=== PATIENT | female | born 1950 | race Caucasian/White ===

== ENCOUNTER → 2019-06-19 11:01 | Outpatient (CLI) | payer MEDICARE, OTHER, SELFPAY ==
[2019-06-19 11:33] LABS: Blood Urea Nitrogen 24 mg/dL (7-17); Estimated Glomerular Filt Rate 54.8 mL/min (>60)
--- NOTE | 2019-06-19 12:45 | DI.CT.S_ITS ---
PROCEDURE: CT ABDOMEN W CON INDICATIONS: Cyst of pancreas. TECHNIQUE: After the administration of oral and intravenous contrast, 5 mm thick sections acquired from the diaphragms to the iliac crests. 5 mm thick coronal and sagittal reformats were acquired. For radiation dose reduction, the following was used: automated exposure control, adjustment of mA and/or kV according to patient size. COMPARISON: Outside Facility, RG, MRI ABDOMEN W/W/O CONTRAST, 02/15/2019, 10:26. [facility], , CT ABD / PANCREAS W/WO CON, 01/24/2019, 10:16. FINDINGS: Image quality: Excellent. Lung bases: Lung bases are clear. Heart size is normal. Solid organs: Liver is normal in size and enhancement. Gallbladder appears normal. Biliary system is non dilated. 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 Spleen is normal in size and enhancement. No adrenal nodules. Kidneys are normal in size, without hydronephrosis. Peritoneum and bowel: Contrast enhanced bowel loops appear normal in caliber. No free fluid or air. Nodes and vessels: No retroperitoneal or mesenteric adenopathy by size criteria. Aorta and inferior vena cava are normal in size. Bones: No suspicious bony lesions. No vertebral body compression fractures. Miscellaneous: No ventral hernias. IMPRESSION: No change in the small nodular enhancing structure at the far proximal pancreatic tail considered by the formerly [facility] report to represent a intrapancreatic splenule. This nodule has not enlarged from the earliest available CT or MR scanning that includes this area dated 01/24/19. Followup contrast enhanced CT or MR scanning is recommended in 6 and 12 additional months from now and assuming stability of appearance over time no additional followup would appear warranted. Dictated by: Rodolfo Reeves M.D. on 06/19/2019 at 15:39 Approved by: Rodolfo Reeves M.D. on 06/19/2019 at 15:49
== END ==
LOC: CT 11:03 → LAB 11:07
PROVIDERS: PCP Family Medicine; Visit Provider Family Medicine
DX: K86.2 Cyst of pancreas (principal); E11.9 Type 2 diabetes mellitus without complications
CPT/HCPCS: 36415; 74160; 82565; 84520; Q9967

== ENCOUNTER → 2019-08-31 13:07 | Outpatient (CLI) | payer MEDICARE, OTHER, SELFPAY ==
--- NOTE | 2019-08-31 13:10 | DI.US.S_ITS ---
PROCEDURE: US PELVIC COMPLETE INDICATIONS: PELVIC CRAMPING AND BLOATING TECHNIQUE: Real-time scanning was performed of the pelvic organs, with image documentation. Additional endovaginal scanning was necessary due to incomplete visualization of the adnexal and endometrial structures by transabdominal scanning. COMPARISON: [facility], RG, CT ABD / PANCREAS W/WO CON, 01/24/2019, 10:16. FINDINGS: Transabdominal scanning: Limited scanning through the kidneys shows no hydronephrosis. No pathologic free abdominal or pelvic fluid. Endovaginal scanning: Uterus: Prior hysterectomy. Ovaries: Ovaries are normal measuring 1.4 x 1.3 x 1.1 cm on the right and 2.3 x 1.5 x 1.5 cm on the left. IMPRESSION: No source for pelvic cramping and bloating identified. Dictated by: Shmuel GIFFORD Interpreted: Juan Hooker MD on 08/31/2019 at 14:08 Approved by: Juan Hooker M.D. on 08/31/2019 at 18:46
== END ==
PROVIDERS: PCP Family Medicine; Visit Provider Specialist
DX: R10.2 Pelvic and perineal pain (principal); R14.0 Abdominal distension (gaseous); Z85.3 Personal history of malignant neoplasm of breast; Z90.710 Acquired absence of both cervix and uterus
CPT/HCPCS: 76830; 76856

== ENCOUNTER → 2020-01-05 10:59 | Outpatient (CLI) | payer MEDICARE, OTHER, SELFPAY ==
--- NOTE | 2020-01-05 | DI.CT.S_ITS ---
PROCEDURE: CT ABDOMEN W CON INDICATIONS: Cyst of pancreas TECHNIQUE: After the administration of intravenous contrast, 5 mm thick sections acquired from the diaphragm to the iliac crests. 5 mm coronal and sagittal reformats were performed. For radiation dose reduction, the following was used: automated exposure control, adjustment of mA and/or kV according to patient size. COMPARISON: [facility], CT, CT ABDOMEN W CON, 06/19/2019, 12:23. FINDINGS: Image quality: Excellent. Lung bases: Lung bases are clear. Heart size is normal. Solid organs: Liver is normal in size and enhancement. Gallbladder is unremarkable. Biliary system is non dilated. No significant change in the appearance of the pancreas. The majority of the pancreas is predominantly fatty replaced. In the tail, there is mildly prominent enhancing nodule tissue which is stable in appearance compared to the prior study. It has been 5 to possibly represent an intra-pancreatic splenule. It measures approximately 1.4 x 1.0 cm, best seen on the coronal reformats. Spleen is normal in size and enhancement. No adrenal nodules. Kidneys demonstrate normal size and enhancement, without hydronephrosis. Peritoneum and bowel: Bowel loops demonstrate normal wall thickness and caliber. No free fluid or air. Nodes and vessels: No retroperitoneal or mesenteric adenopathy by size criteria. Aorta and inferior vena cava are normal in size. Miscellaneous: No ventral hernias. IMPRESSION: Stable enhancing nodular tissue in the pancreatic tail measuring approximately 4.0 cm. 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 As per prior report, recommend [address] Dictated by: Konrad Cherry M.D. on 01/05/2020 at 11:59 Approved by: Konrad Cherry M.D. on 01/05/2020 at 12:04
== END ==
PROVIDERS: PCP Family Medicine; Referring Provider Family Medicine; Visit Provider Family Medicine
DX: K86.2 Cyst of pancreas (principal)
CPT/HCPCS: 74160; Q9967

== ENCOUNTER → 2020-02-09 13:43 | Outpatient (CLI) | payer MEDICARE, OTHER, SELFPAY ==
--- NOTE | 2020-02-09 | DI.ECHO.S_ITS ---
[place] +---------+ Hospital +---------+ : : [address] : : : : [id number] : : : : Phone: [phone]+ Echocardiogram Report + + :Name: CORRIE AMANDA Study Date: 02/09/2020 Height: 62 in : :[facility] Weight: 194 lb : : Gender: Female BSA: 1.9 m2 : :: 1950 Age: 70 yrs BP: 144/76 mmHg: :Reason For Study: Murmur : :Ordering Physician: : :Whit Nowak Performed By: Geneva Bertrand : + + Interpretation Summary Normal sinus rhythm. Normal LV size, wall thickness, wall motion and LV systolic function. EF is 60-65%. Mild LA enlargement; otherwise normal chamber sizes. Aortic sclerosis without stenosis. There is a pacing lead traversing the tricuspid valve with trace associated TR. Otherwise no significant valvular abnormalities. Compared to prior study 05/04/2016 pacing lead is new Procedure: A two-dimensional transthoracic echocardiogram with color flow and Doppler was performed. The study quality was technically difficult. Comparison is made with the echocardiogram of 05/04/2016. The patient was in normal sinus rhythm during the exam. Left Ventricle: The left ventricle is normal in size. There is normal left ventricular wall thickness. There is no ventricular septal defect visualized. The ejection fraction is estimated to be 60-65%. There are no obvious focal wall motion abnormalities noted but poor endocardial definition reduces the sensitivity for the detection of such. Diastolic parameters suggest a relaxation abnormality of the left ventricle, consistent with probable normal filling pressures. Right Ventricle: There is a pacemaker lead in the right ventricle. The right ventricular systolic function is normal. Atria: The left atrium is mildly dilated. Right atrium not well visualized. There is no Doppler evidence for an interatrial shunt. Mitral Valve: The mitral valve leaflets appear mildly thickened, but open well. There is trace mitral regurgitation. Aortic Valve: The aortic valve is trileaflet. The aortic valve opens well. No aortic regurgitation is present. Tricuspid Valve: The tricuspid valve is not well visualized, but is grossly normal. There is trace tricuspid regurgitation. Pulmonic Valve: The pulmonic valve is not well visualized. There is a trace or physiologic amount of pulmonic regurgitation. Great Vessels: The aortic root is normal size. The ascending aorta is normal in size. The aortic arch is normal in size. The IVC is of normal diameter and collapses greater than 50% with a sniff. This suggests a low right atrial pressure of 3 mm Hg. Pericardium/ Pleura There is no pericardial effusion. MMode/2D Measurements & Calculations LVIDd: 4.7 cm LVOT diam: 1.9 cm LVIDs: 3.2 cm Ao root diam: 3.1 cm FS: 32.2 % Aortic Jxn: 2.8 cm EPSS: 0.23 cm asc Aorta Diam: 3.3 cm IVSd: 0.84 cm Ao Arch Diam (Prox Trans): 3.0 cm LVPWd: 0.71 cm LV richard. diameter/BSA (cm/m^2): 2.5 LV sys. diameter/BSA (cm/m^2): 1.7 LA A2 area: 20.9 cm2 IVC diam: 1.4 cm LA A4 area: 21.0 cm2 LA length (vol): 5.5 cm LA vol: 67.4 ml LA vol index: 35.7 ml/m2 TAPSE: 2.5 cm Doppler Measurements & Calculations Ao V2 max: 165.0 cm/sec LVOT Max Cornelio: 93.6 cm/sec Ao V2 mean: 113.5 cm/sec LV V1 max P.5 mmHg Ao max P.9 mmHg LV V1 VTI: 20.7 cm Ao mean P.7 mmHg RAND(I,D): 1.8 cm2 Ao V2 VTI: 33.6 cm RAND(V,D): 1.7 cm2 sev ratio: 0.62 RAND indexed to BSA (cm^2/m^2): 0.97 MV E max cornelio: 80.7 cm/sec TR max cornelio: 247.3 cm/sec MV A max cornelio: 105.3 cm/sec TR max P.5 mmHg MV E/A: 0.77 PA V2 max: 89.3 cm/sec Med Peak E' Cornelio: 6.0 cm/sec PA V2 mean: 58.2 cm/sec E/E' med: 13.4 PA mean P.5 mmHg Lat Peak E' Cornelio: 8.7 cm/sec PA Accel Time: 0.04 sec E/E' lat: 9.2 E/e' average: 11.3 MV dec time: 0.19 sec MV P1/2t: 55.2 msec MV P1/2t max cornelio: 80.0 cm/sec SV(LVOT): 61.7 ml JULIEN(P1/2t): 4.0 cm2 Electronically signed by: Evelina Vincent M.D. on Reading Physician:02/10/2020 09:24 AM
== END ==
PROVIDERS: PCP Family Medicine; Referring Provider Family Medicine; Visit Provider Family Medicine
DX: R01.1 Cardiac murmur, unspecified (principal); Z95.0 Presence of cardiac pacemaker
CPT/HCPCS: 93306

== ENCOUNTER → 2020-04-16 11:41 | Outpatient (ROUT) | payer MEDICARE, OTHER, SELFPAY ==
[2020-04-16 11:54] LABS: INR 0.9 (0.9-1.3); Prothrombin Time 10.8 SECONDS (10.1-12.7)
== END ==
PROVIDERS: PCP Family Medicine; Visit Provider Family Medicine
DX: M54.16 Radiculopathy, lumbar region (principal); Z01.89 Encounter for other specified special examinations
CPT/HCPCS: 85610

== ENCOUNTER → 2020-04-22 08:26 | Outpatient (CLI) | payer MEDICARE, OTHER, SELFPAY ==
[2020-04-22] VITALS (11 sets, daily range): BP systolic 108–170; BP diastolic 64–91; PULSE 60–82; RESP 12–18; TEMP 36.4–37.1; O2SAT 94–100; BMI 32.5
--- NOTE | 2020-04-22 | DI.RAD.S_ITS ---
PROCEDURE: FL MYELOGRAM SPINE LUMBOSACRAL INDICATIONS: Radiculopathy, lumbar region TECHNIQUE: The indications, alternatives, benefits, risks and complications of the procedure were explained to the patient. Written informed consent was obtained and placed in the chart. The patient was placed in a prone position on the fluoroscopy table, and a level was chosen for percutaneous access under fluoroscopic guidance. The skin was prepped and draped in a sterile fashion. After local anaesthetic, a spinal needle was then used to enter the intrathecal space, with return of clear cerebrospinal fluid. 9 mL of Isovue-M 300 were administered intrathecally under fluoroscopic visualization. The needle was then withdrawn, and a bandage applied to the puncture site. Fluoroscopic spot films were then acquired in various positions. FINDINGS: Standing frontal, lateral, and oblique views demonstrate no significant central canal stenoses. Access level: L4-L5 Medications: 1% lidocaine for local anaesthesia. Complications: None. Patient was transferred to CT for subsequent CT myelogram. IMPRESSION: Successful fluoroscopically guided administration of iodinated contrast into the lumbar spine central canal for CT myelogram. Dictated by: Carlos Poon M.D. on 04/22/2020 at 12:49 Approved by: Carlos Poon M.D. on 04/22/2020 at 12:50
--- NOTE | 2020-04-22 | DI.CT.S_ITS ---
PROCEDURE: CT LUMBAR SPINE W CON INDICATIONS: Radiculopathy, lumbar region TECHNIQUE: After the intrathecal administration of 15 mL intrathecal contrast, 3 mm thick sections acquired from T12 to the sacrum. Sagittal and coronal reformats were then constructed. For radiation dose reduction, the following was used: automated exposure control. COMPARISON: None. FINDINGS: Image quality: Excellent. Bones: Chronic bilateral L5 pars defects. Trace anterolisthesis of L5 on S1. Partially visualized lateral curvature of the spine. No fracture or focal osseous destruction. Multilevel degenerative endplate sclerosis and spurring. Diffuse facet arthropathy. Incidental T12 superior endplate Schmorl's node. Soft tissues: No retroperitoneal masses. Visualized aorta demonstrates normal caliber. T12-L1: No canal stenosis. No definite foraminal narrowing. L1-L2: No canal stenosis. No foraminal stenosis. L2-L3: No canal stenosis. No foraminal stenosis. L3-L4: No canal stenosis. Partial effacement of both lateral recesses with bilaterally symmetric appearance. Mild left foraminal narrowing, with borderline nerve root compression. No right foraminal stenosis. L4-L5: Mild canal narrowing. Partial effacement of both lateral recesses with bilaterally symmetric appearance. No foraminal stenosis on the left. Mild right foraminal narrowing with borderline nerve root compression L5-S1: Mild canal narrowing. Mild left foraminal narrowing with slight nerve root compression. Moderate right foraminal stenosis with nerve root compression. Miscellaneous: Nerve roots appear unremarkable throughout. No nerve root clumping to suggest arachnoiditis. IMPRESSION: No high-grade canal stenosis. Mild left L3-L4 foraminal narrowing. Mild right L4-L5 foraminal narrowing Mild to moderate bilateral L5-S1 foraminal narrowing, right greater than left. Chronic L5 pars defects. Trace anterolisthesis of L5 on S1 Dictated by: Carlos Poon M.D. on 04/22/2020 at 12:50 Approved by: Carlos Poon M.D. on 04/22/2020 at 13:08
[2020-04-22 08:53] LABS: Hematocrit 40.3 % (36-46); Platelet Count 205 X10^3/uL (150-400)
[2020-04-22 09:00] LABS: INR 0.9 (0.9-1.3); Prothrombin Time 10.1 SECONDS (10.1-12.7)
[2020-04-22] MEDS: fentaNYL 100 MCG/2 ML INJ 50 MCG IV (10:53)
[2020-04-22] MEDS: MIDAZOLAM 5 MG/ML VIAL 1 MG IV (10:54)
[2020-04-22] MEDS: ACETAMINOPHEN 325 MG TABLET 650 MG PO (11:14)
== END ==
PROVIDERS: PCP Family Medicine; Referring Provider Family Medicine; Visit Provider Family Medicine
DX: M54.16 Radiculopathy, lumbar region (principal); Z01.89 Encounter for other specified special examinations
CPT/HCPCS: 36415; 72131; 72265; 85014; 85049; 85610; J2250; J3010

== ENCOUNTER → 2020-09-20 13:34 | Outpatient (CLI) | payer MEDICARE, OTHER, SELFPAY ==
--- NOTE | 2020-09-20 | DI.RAD.S_ITS ---
PROCEDURE: XR LUMBAR SPINE 2-3V INDICATIONS: LUMBAR RADICULOPATHY TECHNIQUE: 3 views of the lumbar spine were acquired. COMPARISON: None. FINDINGS: Bones: No fracture. Dextroscoliosis. Multilevel degenerative endplate sclerosis and spurring. Diffuse facet arthropathy. Diffuse mild to moderate narrowing of the lumbar disc spaces. Grade 1 anterolisthesis of L5 on S1. Soft tissues: Scattered vascular calcifications seen in the aorta. IMPRESSION: Dextroscoliosis Diffuse lumbar spondylosis and facet arthropathy Dictated by: Carlos Poon M.D. on 09/20/2020 at 14:21 Approved by: Carlos Poon M.D. on 09/20/2020 at 14:23
== END ==
PROVIDERS: PCP Family Medicine; Referring Provider Family Medicine; Visit Provider Family Medicine
DX: M41.86 Other forms of scoliosis, lumbar region (principal); M47.26 Other spondylosis with radiculopathy, lumbar region
CPT/HCPCS: 72100

== ENCOUNTER → 2021-01-06 11:16 | Outpatient (CLI) | payer MEDICARE, OTHER, SELFPAY ==
--- NOTE | 2021-01-06 12:59 | DI.CT.S_ITS ---
PROCEDURE: CT ABDOMEN W CON INDICATIONS: Cyst of pancreas TECHNIQUE: After the administration of oral and intravenous contrast, 5 mm thick sections acquired from the diaphragms to the iliac crests. 5 mm thick coronal and sagittal reformats were acquired. For radiation dose reduction, the following was used: automated exposure control, adjustment of mA and/or kV according to patient size. COMPARISON: [facility], CT, CT ABDOMEN W CON, 06/19/2019, 12:23. [facility], CT, CT ABDOMEN W CON, 01/05/2020, 11:36. FINDINGS: Image quality: Excellent. Lung bases: Lung bases are clear. Heart size is mildly enlarged and there is a pacemaker lead present.. Solid organs: Liver is normal in size and enhancement. Gallbladder is normal . Biliary system is non dilated. The majority of the pancreas demonstrates fatty replacement with sparing in the pancreatic tail. No change in morphology to this area which respects the pancreatic glandular margins. There is no ductal dilatation or unusual calcification. There are no new pancreatic masses Spleen is normal in size and enhancement. No adrenal nodules. Kidneys are normal in size, without hydronephrosis. Tiny right renal cyst. Peritoneum and bowel: Contrast enhanced bowel loops appear normal in caliber. No free fluid or air. Nodes and vessels: No retroperitoneal or mesenteric adenopathy by size criteria. Aorta and inferior vena cava are normal in size. Mild abdominal aortic atherosclerotic calcification. Bones: No suspicious bony lesions. No vertebral body compression fractures. Miscellaneous: Tiny fat containing umbilical hernia. IMPRESSION: 1. No change in size or morphology of the pancreatic tail lesion compared to prior studies. This is most likely benign. Consider annual follow-up to assess for size change. Dictated by: Caroline Lujan M.D. on 01/06/2021 at 16:13 Approved by: Caroline Lujan M.D. on 01/06/2021 at 16:20
== END ==
PROVIDERS: PCP Family Medicine; Referring Provider Family Medicine; Visit Provider Family Medicine
DX: K86.2 Cyst of pancreas (principal)
CPT/HCPCS: 74160; Q9967

== ENCOUNTER → 2021-01-22 09:28 | Outpatient (CLI) | payer MEDICARE, OTHER, SELFPAY ==
[2021-01-22 11:20] LABS: COVID19 -Nasal RAPID Negative (Negative)
== END ==
PROVIDERS: PCP Family Medicine; Visit Provider Physician Assistant
DX: Z01.812 Encounter for preprocedural laboratory examination (principal); Z20.822 Contact with and (suspected) exposure to COVID-19
CPT/HCPCS: 87635; C9803

== ENCOUNTER → 2021-01-24 10:46 | Outpatient (CLI) | payer MEDICARE, OTHER, SELFPAY ==
--- NOTE | 2021-01-24 11:42 | PM.TREADMILL ---
Cardiac Stress Test Report Referral & Results Date Patient Seen: 01/24/21 Time Patient Seen: 11:42 Requesting provider: Whit Nowak Indication: syncope and collapse Rest ECG: V paced Procedure Note: After Lexiscan injection, had minimal dyspnea, no chest discomfort No significant ST changes after Lexiscan injection No ectopy Hypertensive at baseline Impression: Normal Lexiscan stress test Please note: Actual ECG tracings can be found in the PACS system.
--- NOTE | 2021-01-27 17:54 | DI.NM.S_ITS ---
DATE OF SERVICE: 01/24/2021 PROCEDURE: Pharmacological perfusion study. INDICATION: Syncope with underlying diabetes mellitus, hypertension, hyperlipidemia. RADIOPHARMACEUTICAL: 25.6 millicurie of technetium-99m Myoview IV was injected at stress and 24.6 millicurie technetium-99m Myoview IV was injected at rest. CARDIAC STRESS: The patient underwent IV Lexiscan perfusion study under the supervision of an attending staff. The patient remained hemodynamically stable. [place] minimal dyspnea. No chest discomfort. Baseline EKG revealed A-sensed and ventricular paced rhythm. During stress, no new convincing ischemic changes. No new significant arrhythmias other than ventricular paced rhythm. Baseline blood pressure was 152/88. RAW DATA: There was breast shadow seen. GATED STUDY: Stress LV ejection fraction 82 percent without any obvious wall motion abnormalities. Resting end-diastolic volume 86 mL. TID ratio 1.05, which is within normal limits. Lung/heart ratio 0.48, which is mildly elevated. MYOCARDIAL PERFUSION: Stress supine and resting supine images revealed moderate- size, mild to moderately decreased perfusion of mid to distal anterior wall, anteroapex and distal anterior septum, which got completely resolved during prone images suggestive of breast tissue attenuation artifact. No convincing ischemia or infarction pattern seen during prone images. CONCLUSION: I will call this study a normal myocardial perfusion study with evidence of breast tissue attenuation artifact, which got resolved during prone images. Left ventricular function is preserved. Lung/heart ratio was mildly elevated. As far as perfusion scan is concerned, this is a low-risk myocardial perfusion scan. In view of abnormal lung/heart ratio, consider 2D echo to make sure there is no significant left-sided valvular pathology or diastolic dysfunction. Thanks. Griselda Ramirez - LAURY/abilio/lukas doc#: [id number]/job#: [id number] dd: 01/27/2021 16:42:00 dt: 01/27/2021 17:34:00 DICTATING MD/COPIES TO: Ankit Rainey MD COPIES MNE: SHLOMO;
== END ==
PROVIDERS: PCP Family Medicine; Referring Provider Family Medicine; Visit Provider Family Medicine
DX: R55 Syncope and collapse (principal); E11.9 Type 2 diabetes mellitus without complications; I10 Essential (primary) hypertension; E78.5 Hyperlipidemia, unspecified
CPT/HCPCS: 78452; 93017; A9502; J2785

== ENCOUNTER → 2021-02-27 10:21 | Outpatient (CLI) | payer MEDICARE, OTHER, SELFPAY ==
--- NOTE | 2021-02-27 | DI.ECHO.S_ITS ---
[place] [facility]---------+ [facility] +---------+ : : [address] [place] : : : : [id number] : : : : Phone: [phone]+ Echocardiogram Report + + :Name: CORRIE AMANDA Study Date: 02/27/2021 Height: 62 in : :[facility] ReadingLocation: Weight: 200 lb : : Gender: Female BSA: 1.9 m2 : :: 1950 Age: 71 yrs BP: 192/96 mmHg: :Reason For Study: Murmur : :Ordering Physician: CORA, : :FRANCHESCA Performed By: Eligio Webber : :Referring: FRANCHESCA SHEPHERD : + + Interpretation Summary 1) Normal left ventricular thickness, size, wall motion, and systolic function (EF 55-60%). 2) Normal right ventricular size and function. There is a pacemaker lead in the right ventricle. 3) Aortic valve sclerosis without stenosis or regurgitation. 4) Severe hypertension present during the study (BP 192/96mmHg). 5) Compared to the Echo done 02/09/2020, no significant chane in cardiac structure but severe hypertension is present on the current study. Procedure: A two-dimensional transthoracic echocardiogram with color flow and Doppler was performed. The study quality was technically adequate. Comparison is made with the echocardiogram of 02/09/2020. A contrast injection of Definity was performed to improve assessment of LV function. The patient was in sinus rhythm with heart rates between 65-71 bpm during the exam. Left Ventricle: The left ventricle is normal in size and wall thickness. Left ventricular systolic function is normal. The ejection fraction is estimated to be 55-60%. There are no focal wall motion abnormalities. Diastolic function could not be accurately assessed due to contradictory data. Right Ventricle: The right ventricle is normal in size and function. There is a pacemaker lead in the right ventricle. Atria: Both atria are normal in size. There is no Doppler evidence for an interatrial shunt. Mitral Valve: The mitral valve is normal in structure and function. There is mild mitral regurgitation. Aortic Valve: There is mild aortic valve sclerosis. There is no aortic valve stenosis. There is trace aortic regurgitation. Tricuspid Valve: The tricuspid valve is normal in structure and function. There is mild tricuspid regurgitation. The right ventricular systolic pressure is estimated to be at least 26 mmHg based on an estimated right atrial pressure of 3 mm Hg. Pulmonic Valve: The pulmonic valve is not well seen, but is grossly normal. There is a trace or physiologic amount of pulmonic regurgitation. Great Vessels: The aortic root is normal size. The dimensions of the ascending aorta are normal. The IVC is of normal diameter and collapses greater than 50% with a sniff. This suggests a low right atrial pressure of 3 mm Hg. Pericardium/ Pleura There is no pericardial effusion. There is no pleural effusion. MMode/2D Measurements & Calculations LVIDd: 4.7 cm LVOT diam: 2.1 cm LVIDs: 3.1 cm Ao root diam: 3.1 cm FS: 34.3 % asc Aorta Diam: 3.2 cm IVSd: 0.86 cm LVPWd: 0.79 cm LV richard. diameter/BSA (cm/m^2): 2.5 LV sys. diameter/BSA (cm/m^2): 1.6 LA A2 area: 20.1 cm2 RA area: 14.5 cm2 LA A4 area: 18.0 cm2 LA length (vol): 5.7 cm LA vol: 53.9 ml LA vol index: 28.2 ml/m2 RVD1 (basal): 2.5 cm TAPSE: 3.1 cm Doppler Measurements & Calculations Ao V2 max: 203.4 cm/sec LVOT Max Cornelio: 116.4 cm/sec Ao V2 mean: 141.1 cm/sec LV V1 max P.4 mmHg Ao max P.5 mmHg LV V1 VTI: 26.4 cm Ao mean P.9 mmHg RAND(I,D): 2.2 cm2 Ao V2 VTI: 42.0 cm RAND(V,D): 2.0 cm2 sev ratio: 0.63 RAND indexed to BSA (cm^2/m^2): 1.2 MV E max cornelio: 110.5 cm/sec TR max cornelio: 240.5 cm/sec MV A max cornelio: 120.4 cm/sec TR max P.1 mmHg MV E/A: 0.92 PA V2 max: 109.2 cm/sec Med Peak E' Corneilo: 6.6 cm/sec PA V2 mean: 75.3 cm/sec E/E' med: 16.7 PA mean P.5 mmHg Lat Peak E' Cornelio: 8.5 cm/sec PA pr(Accel): 53.0 mmHg E/E' lat: 13.0 E/e' average: 14.8 MV dec time: 0.21 sec SV(LVOT): 92.5 ml Reading Physician:02:19 PM
== END ==
PROVIDERS: PCP Family Medicine; Referring Provider Family Medicine; Visit Provider Family Medicine
DX: I08.1 Rheumatic disorders of both mitral and tricuspid valves (principal); R01.1 Cardiac murmur, unspecified
CPT/HCPCS: C8929; Q9957

== ENCOUNTER → 2021-08-20 15:48 | Outpatient (CLI) | payer MEDICARE, OTHER, SELFPAY ==
--- NOTE | 2021-08-20 15:52 | DI.RAD.S_ITS ---
PROCEDURE: XR SHOULDER LT MIN 2V INDICATIONS: RADICULOPATHY LUMBAR REGION TECHNIQUE: 3 views of the shoulder were acquired. COMPARISON: None. FINDINGS: Bones: No fractures or dislocations. No suspicious bony lesions. Visualized ribs appear intact. Mild periarticular osteophyte formation at the acromioclavicular and glenohumeral joints. Soft tissues: No suspicious soft tissue calcifications. Left axillary surgical clips. Left chest wall pacer. IMPRESSION: Osteoarthritis. No acute fracture. No osseous lesion. If symptoms and/or clinical suspicion for pathology persist, further assessment with repeat, or advanced imaging (e.g., CT, MRI, or bone scan) may be helpful for further assessment. Dictated by: Lyudmila Casas M.D. on 08/20/2021 at 16:35 Approved by: Lyudmila Casas M.D. on 08/20/2021 at 16:48
--- NOTE | 2021-08-20 15:52 | DI.RAD.S_ITS ---
PROCEDURE: XR LUMBAR SPINE 2-3V INDICATIONS: RADICULOPATHY LUMBAR REGION TECHNIQUE: 3 views of the lumbar spine were acquired. COMPARISON: [facility], CT, CT LUMBAR SPINE W CON, 04/22/2020, 10:38. [facility], CR, XR LUMBAR SPINE 2-3V, 09/20/2020, 13:42. FINDINGS: Bones: 5 [id number] vertebrae are present. Mild dextrocurvature of the lumbar spine. Anterior endplate osteophytosis. Facet arthrosis, most prominent at L4-S1. Grade 1 anterolisthesis at L5-S1, which may have progressed compared to the prior CT lumbar spine. No vertebral body compression fractures. No suspicious bony lesions. Soft tissues: Overlying bowel gas pattern is normal. No suspicious soft tissue calcifications. IMPRESSION: Progression of the patient's grade 1 anterolisthesis at L5-S1 versus projection. CT or MR imaging may be helpful for further evaluation. Dictated by: Johnathan Pringle M.D. on 08/20/2021 at 17:05 Approved by: Johnathan Pringle M.D. on 08/20/2021 at 17:10
== END ==
PROVIDERS: PCP Family Medicine; Referring Provider Family Medicine; Visit Provider Family Medicine
DX: M65.819 Other synovitis and tenosynovitis, unspecified shoulder (principal); M19.012 Primary osteoarthritis, left shoulder; M43.17 Spondylolisthesis, lumbosacral region; M47.26 Other spondylosis with radiculopathy, lumbar region; M47.27 Other spondylosis with radiculopathy, lumbosacral region; Z95.0 Presence of cardiac pacemaker
CPT/HCPCS: 72100; 73030

== ENCOUNTER → 2021-10-17 13:35 | Outpatient (CLI) | payer MEDICARE, OTHER, SELFPAY ==
[2021-10-17 14:14] LABS: Hemoglobin A1C% w Est Avg Glu 6.2 % (4.0-6.0)
[2021-10-17 14:40] LABS: Alanine Aminotransferase 33 IU/L (<35); Albumin 4.4 g/dL (3.5-5.0); Albumin Globulin Ratio 1.8 (1.0-2.8); Alkaline Phosphatase 71 U/L (38-126); Aspartate Aminotransferase 38 IU/L (14-36); BUN Creatinine Ratio 19.5 (6-22); Bilirubin Total 0.4 mg/dL (0.2-1.3); Blood Urea Nitrogen 16 mg/dL (7-17); Carbon Dioxide 31 mmol/L (22-32); Chloride 99 mmol/L (98-107); Cholesterol 147 mg/dL (140-199); Estimated Glomerular Filt Rate > 60.0 mL/min (>60); Globulin 2.5 g/dL (1.7-4.1); Glucose 105 mg/dL (80-110); HDL Cholesterol 52 mg/dL (40-60); HEMOLYSIS < 15 (0-50); LDL Cholesterol Calculated 65 mg/dL (<100); Potassium 4.1 mmol/L (3.4-5.1); Sodium 136 mmol/L (137-145); Total Protein 6.9 g/dL (6.3-8.2); Triglycerides 148 mg/dL (35-150); VLDL Cholesterol Calculated 30 mg/dL (2-30)
[2021-10-17 16:23] LABS: Creatinine Urine Random 25.5 mg/dL
[2021-10-17 16:29] LABS: Microalbumin Urine Random < 0.6 mg/dL (0-1.6)
== END ==
PROVIDERS: PCP Family Medicine; Referring Provider Family Medicine; Visit Provider Family Medicine
DX: E11.9 Type 2 diabetes mellitus without complications (principal); E78.5 Hyperlipidemia, unspecified; I10 Essential (primary) hypertension
CPT/HCPCS: 36415; 80053; 80061; 82043; 82570; 83036

== ENCOUNTER → 2021-12-25 10:48 | Outpatient (CLI) | payer MEDICARE, OTHER, SELFPAY ==
--- NOTE | 2021-12-25 | DI.RAD.S_ITS ---
PROCEDURE: XR DEXA AXIAL SKELETON INDICATIONS: Asymptomatic menopausal state COMPARISON: None. FINDINGS: This blank DEXA report has been sent in error by the PACS system. The correct and complete report will be forthcoming in 1-2 days. Thank you for your patience and understanding. Dictated by: Heaven Griffin MD, PhD on 12/25/2021 at 15:07 Approved by: Heaven Griffin MD, PhD on 12/25/2021 at 15:07
== END ==
PROVIDERS: PCP Family Medicine; Referring Provider Family Medicine; Visit Provider Family Medicine
DX: Z78.0 Asymptomatic menopausal state (principal); Z87.891 Personal history of nicotine dependence
CPT/HCPCS: 77080

== ENCOUNTER → 2022-12-29 10:57 | Outpatient (CLI) | payer MEDICARE, OTHER, SELFPAY ==
--- NOTE | 2022-12-29 11:01 | DI.CT.S_ITS ---
PROCEDURE: CT ABDOMEN W CON INDICATIONS: Cyst of pancreas TECHNIQUE: After the administration of intravenous contrast, axial sections were acquired from the lung bases to the pubic symphysis. Coronal and sagittal reformats were performed. For radiation dose reduction, the following was used: automated exposure control, adjustment of mA and/or kV according to patient size. COMPARISON:[facility], CT, CT ABDOMEN W CON, 01/06/2021, 12:12. FINDINGS: LIVER: The liver has no mass or intrahepatic biliary ductal dilatation. The portal vein and hepatic veins are patent. BILIARY: The gallbladder has no gallstones, pericholecystic fluid, gallbladder wall thickening, or surrounding inflammatory change. PANCREAS: The pancreas demonstrates fatty atrophy with sparing of the pancreatic tail. No change in morphology since the prior CT on 01/06/2021. No ductal dilatation. No pancreatic mass or cyst identified. SPLEEN: Normal size. There are no masses. ADRENALS: No hypertrophy or nodules. KIDNEYS: No obstructive calculus or hydronephrosis. No solid mass. No cystic mass.. AORTA/VASCULAR: The aorta has atherosclerosis with no aneurysmal dilatation. RETROPERITONEUM: No retroperitoneal mass or adenopathy. LYMPH NODES: No adenopathy in the abdomen or pelvis. BOWEL/MESENTERY: The distal esophagus and stomach are normal. The visualized small bowel has a normal caliber and appearance. The visualized large bowel has a normal caliber and appearance. FREE FLUID OR AIR: None. ABDOMINAL WALL: No abdominal wall mass. No hernia. BONES: Degenerative changes with no focal abnormality. LUNG BASES: The lung bases are clear. IMPRESSION: No interval change in the morphology of the pancreas. Dictated by: Abdi Scott M.D. on 12/29/2022 at 12:46 Approved by: Abdi Scott M.D. on 12/29/2022 at 12:56
[2022-12-29 11:31] LABS: Estimated Glomerular Filt Rate > 60 mL/min (>60)
== END ==
PROVIDERS: Radiology Diagnostic Radiology; PCP Family Medicine; Referring Provider Family Medicine; Visit Provider Family Medicine
DX: K86.2 Cyst of pancreas (principal)
CPT/HCPCS: 36415; 74160; 82565

== ENCOUNTER → 2023-01-12 09:27 | Outpatient (CLI) | payer MEDICARE, OTHER, SELFPAY ==
--- NOTE | 2023-01-12 | DI.MG.S_ITS ---
BILATERAL DIGITAL DIAGNOSTIC MAMMOGRAM 3D/2D POST LUMPECTOMY: 01/12/2023 CLINICAL: Right breast pain. Comparison is made to exams dated: 01/06/2022 mammogram, 11/21/2020 mammogram, and 11/20/2019 mammogram - outside location. There are scattered areas of fibroglandular density in both breasts (category b / 25%-50% glandular tissue). No significant masses, calcifications, or other findings are seen in either breast. There has been no significant interval change. IMPRESSION: NEGATIVE There is no mammographic evidence of malignancy. A 1 year screening mammogram is recommended. This exam was interpreted at Station ID: [id number]. NOTE: For mammograms, a report in lay terms will be sent to the patient. Approximately 15% of breast malignancies will not be visualized mammographically. In the management of a palpable breast mass, a negative mammogram must not discourage biopsy of a clinically suspicious lesion. Electronically Signed By: Geovany Arenas M.D., jr/radha:01/12/2023 14:19:06 letter sent: Normal Exam ACR BI-RADS Category 1: Negative [id number]
== END ==
PROVIDERS: PCP Family Medicine; Referring Provider Family Medicine; Visit Provider Family Medicine
DX: N64.4 Mastodynia (principal)
CPT/HCPCS: 77066; G0279

== ENCOUNTER → 2024-02-21 14:34 | Outpatient (CLI) | payer MEDICARE, OTHER, SELFPAY ==
--- NOTE | 2024-02-21 | DI.RAD.S_ITS ---
PROCEDURE: XR CHEST 2V INDICATIONS: Pneumonia, unspecified organism TECHNIQUE: 2 views of the chest were acquired. COMPARISON: None. FINDINGS: Surgical changes and devices: Dual-chamber pacemaker in good position. Single band and ventricular lead noted. Surgical clips in the left axilla. Lungs and pleura: Lungs are clear. No pleural effusions or pneumothorax. Mediastinum: Mediastinal contours are normal. Heart size is normal. Bones and chest wall: No suspicious bony abnormalities. Soft tissues appear unremarkable. IMPRESSION: No acute cardiopulmonary abnormality is seen. Approved by: Sergey Rose M.D. on 02/21/2024 at 19:57
== END ==
PROVIDERS: PCP Family Medicine; Referring Provider Family Medicine; Visit Provider Family Medicine
DX: J18.9 Pneumonia, unspecified organism (principal)
CPT/HCPCS: 71046

== ENCOUNTER → 2024-06-19 13:14 | Outpatient (CLI) | payer MEDICARE, OTHER, SELFPAY ==
[2024-06-19 14:13] LABS: BUN Creatinine Ratio 20.4 (6-22); Blood Urea Nitrogen 21 mg/dL (7-17); Calcium 10.4 mg/dL (8.4-10.2); Carbon Dioxide 25 mmol/L (22-32); Chloride 103 mmol/L (98-107); Estimated Glomerular Filt Rate 57 mL/min (>60); Glucose 119 mg/dL (80-110); HEMOLYSIS 16 (0-50); Magnesium 1.7 mg/dL (1.6-2.3); Potassium 3.9 mmol/L (3.4-5.1); Sodium 139 mmol/L (137-145)
== END ==
PROVIDERS: PCP Family Medicine; Referring Provider Family Medicine; Visit Provider Family Medicine
DX: E83.42 Hypomagnesemia (principal); E87.6 Hypokalemia
CPT/HCPCS: 36415; 80048; 83735

== ENCOUNTER → 2024-08-10 16:22 | Outpatient (CLI) | payer MEDICARE, OTHER, SELFPAY ==
[2024-08-10 17:22] LABS: Add Manual Diff / Slide Review NO; Basophils Absolute Auto 100 /uL (0-100); Basophils Percent Auto 1.1 % (0-2); Eosinophils Absolute Auto 500 /uL (0-450); Eosinophils Percent Auto 7.1 % (2-4); Hematocrit 35.4 % (36-46); Hemoglobin 11.9 g/dL (12.0-16.0); Lymphocytes Absolute Auto 2500 /uL (1100-4500); Mean Corpuscular HGB Conc 33.7 % (30-36); Mean Corpuscular Hemoglobin 31.4 PG (26-34); Mean Corpuscular Volume 93.4 fL (80-100); Monocytes Absolute Auto 700 /uL (0-900); Monocytes Percent Auto 9.9 % (3-14); Neutrophils Absolute Auto 3300 /uL (1500-7000); Neutrophils Percent Auto 46.9 % (50-75); Platelet Count 205 X10^3/uL (150-400); Red Blood Cell Count 3.79 X10^6/uL (4.0-5.2); Red Cell Distribution Width 15.1 % (11.6-14.8); White Blood Cell Count 7.1 X10^3/uL (4.5-11.0)
[2024-08-10 17:30] LABS: Hemoglobin A1C% w Est Avg Glu 6.7 % (4.0-6.0)
[2024-08-10 18:00] LABS: Alanine Aminotransferase 28 IU/L (<35); Albumin 4.4 g/dL (3.5-5.0); Albumin Globulin Ratio 1.6 (1.0-2.8); Alkaline Phosphatase 81 U/L (38-126); Aspartate Aminotransferase 35 IU/L (14-36); BUN Creatinine Ratio 22.6 (6-22); Bilirubin Total 0.6 mg/dL (0.2-1.3); Blood Urea Nitrogen 21 mg/dL (7-17); Calcium 9.9 mg/dL (8.4-10.2); Carbon Dioxide 29 mmol/L (22-32); Chloride 98 mmol/L (98-107); Cholesterol 181 mg/dL (140-199); Estimated Glomerular Filt Rate > 60 mL/min (>60); Globulin 2.8 g/dL (1.7-4.1); Glucose 108 mg/dL (80-110); HDL Cholesterol 46 mg/dL (40-60); HEMOLYSIS < 15 (0-50); LDL Cholesterol Calculated 88 mg/dL (<100); Magnesium 1.2 mg/dL (1.6-2.3); Potassium 3.7 mmol/L (3.4-5.1); Sodium 136 mmol/L (137-145); Total Protein 7.2 g/dL (6.3-8.2); Triglycerides 235 mg/dL (35-150)
== END ==
LOC: LAB 16:24
PROVIDERS: PCP Family Medicine; Referring Provider Family Medicine; Visit Provider Family Medicine
DX: E87.6 Hypokalemia (principal); E11.9 Type 2 diabetes mellitus without complications; E83.42 Hypomagnesemia; E78.00 Pure hypercholesterolemia, unspecified
CPT/HCPCS: 36415; 80053; 80061; 83036; 83735; 84443; 85025

== ENCOUNTER → 2024-10-03 15:22 | Outpatient (CLI) | payer MEDICARE, OTHER, SELFPAY ==
--- NOTE | 2024-10-19 15:56 | DIAB.MNT ---
Initial Diabetes Medical Nutrition Therapy Assessment Name: Griselda Ramirez Date: 10/03/24 Time: 330-410p Dx: Type II Diabetes Provider: She Villalobos presents for initial Dm visit. Diagnosed about 10 years ago per report. Had DM education at diagnosis. Reports stress with recent loss of RAUDEL Sugar at night per report, ie candy Eats white bread, though does like ww and sourdough Interested in CGM per report. Diet recall: 1-2p: sandwich OR soup and sandwich snacking in afternoon: crackers/popcorn 8p: meat, potatoes x 1c OR pasta x 1c with veggies sn: +/- caramels x 4-5 water 16.9oz x4, wine on weekends x 1-2 servings Anthropometrics: Ht: 61 Wt: 197# Physical Activity: 20 min walks to [employer], [employer] Self-Monitoring Blood Glucose: Use to check but replaced meter batter and now needs setup Diabetes Medications: 500mg Metformin BID Pertinent Labs: HgA1c: 6.7% 08/2024 T chol: 181 HDL46 LDL 88 Past Medical History: (Last Updated 06/20/23 @ 20:33 by Marva Naylor) Cataracts, bilateral Chronic back pain Colon polyps Foot pain Gait instability Grade 3 cystocele (06/03/15) Repaired Hemorrhoid (~2014) Lumbar radiculopathy Post concussive syndrome Nutrition Rx: Carbohydrates: Meal:30-45g Snack:15-30g Nutrition Diagnosis: - Nutrition and food related knowledge deficit r/t needing refresher on nutrition aeb pt report - Predicted excessive CHO intake r/t stage of change aeb pt report and diet recall - Self monitoring deficit r/t needing setup for meter aeb pt report Intervention: This participant was very receptive. Provided appropriate educational handouts. Discussed the following topics: Completed intake assessment. Discussed barriers to care. Importance of self-monitoring, how often, and when to check. Suggested checking at different times to evaluate meals Plate Method, impact of macronutrients on blood sugar, meal timing, carbohydrate counting, pairing macronutrients and spreading out carbohydrates for better blood glucose management Recommended servings for carbohydrates at meals and snacks Heart health nutrition CGM info and indications Brainstormed appropriate meal plan based on food preferences Role of physical activity and following provider guidelines for safety Created SMART goals for patient self-care and success. Goals: Bring meter next visit Set snack times Pair Pro with CHO Follow-up: [facility]TY WHYTE follow-up in 2-3 weeks Jenna Meehan RDN, PATO Certified Diabetes Care and Director Of Slot Operations P: [phone] Thank you for this referral
== END ==
PROVIDERS: PCP Family Medicine; Referring Provider Family Medicine
DX: E11.9 Type 2 diabetes mellitus without complications (principal); Z79.84 Long term (current) use of oral hypoglycemic drugs; Z71.3 Dietary counseling and surveillance
CPT/HCPCS: 97802

== ENCOUNTER → 2024-10-19 16:01 | Outpatient (CLI) | payer MEDICARE, OTHER, SELFPAY ==
--- NOTE | 2024-12-05 14:55 | DIAB.MNTFU ---
Follow-up Diabetes Medical Nutrition Therapy Assessment Name: Griselda Ramirez Date: 10/19/24 Time: 405-5p Dx: Type II Diabetes Provider: She Villalobos presents for Dm visit. Diagnosed about 10 years ago per report. Had DM education at diagnosis. Brought a glucerna ONS with question regarding nutrition and recs. Reports afternoon snacks are better on busy days. Late dinner, home and busy pairing CHO and pro for snacks mostly wants to discuss portions and cravings for carbs, ie bread, crackers, pretzels, popcorn. Reports dry feet, does not use lotion. Needing more education of foot care and DM. Endorses long periods of fasting during the day, especially in the morning. Last Diet recall: 1-2p: sandwich OR soup and sandwich snacking in afternoon: crackers/popcorn 8p: meat, potatoes x 1c OR pasta x 1c with veggies sn: +/- caramels x 4-5 water 16.9oz x4, wine on weekends x 1-2 servings Anthropometrics: Ht: 61 Wt: 197# Physical Activity: 20 min walks to [employer] Self-Monitoring Blood Glucose: Brought meter today but all strips are . Diabetes Medications: 500mg Metformin BID Pertinent Labs: HgA1c: 6.7% 08/2024 T chol: 181 HDL46 LDL 88 Past Medical History: (Last Updated 06/20/23 @ 20:33 by Marva Naylor) Cataracts, bilateral Chronic back pain Colon polyps Foot pain Gait instability Grade 3 cystocele (06/03/15) Repaired Hemorrhoid (~2014) Lumbar radiculopathy Post concussive syndrome Nutrition Rx: Carbohydrates: Meal:30-45g Snack:15-30g Nutrition Diagnosis: - Nutrition and food related knowledge deficit r/t needing refresher on nutrition aeb pt report- in progress - Predicted excessive CHO intake r/t stage of change aeb pt report and diet recall- in progress - Self monitoring deficit r/t needing setup for meter aeb pt report - in progress Intervention: This participant was very receptive. Provided appropriate educational handouts. Discussed the following topics: Reviewed carb portions, meal timing, pairing, and ways to reduce or satisfy cravings Foot care and DM Reviewed SMBG in brief and need for new strips, when to check Created SMART goals for patient self-care and success. Goals: Bring meter next visit- met Set snack times- in progress Pair Pro with CHO- met Ask PCP for meter supplies- new Try to lotion feet- new Try to eat q 3-4 hours- new Follow-up: KITTY WHYTE follow-up in 3-4 weeks Jenna Meehan RDN, PATO Certified Diabetes Care and Banana Handler P: [phone] Thank you for this referral
== END ==
PROVIDERS: PCP Family Medicine; Referring Provider Family Medicine
DX: E11.9 Type 2 diabetes mellitus without complications (principal); Z71.3 Dietary counseling and surveillance; Z79.84 Long term (current) use of oral hypoglycemic drugs
CPT/HCPCS: 97803

== ENCOUNTER → 2024-11-27 17:13 | Outpatient (CLI) | payer MEDICARE, OTHER, SELFPAY ==
[2024-11-27 18:24] LABS: Add Manual Diff / Slide Review NO; Basophils Absolute Auto 0 /uL (0-100); Basophils Percent Auto 0.7 % (0-2); Eosinophils Absolute Auto 500 /uL (0-450); Eosinophils Percent Auto 8.6 % (2-4); Hematocrit 35.8 % (36-46); Hemoglobin 11.8 g/dL (12.0-16.0); Lymphocytes Absolute Auto 2300 /uL (1100-4500); Lymphocytes Percent Auto 36.4 % (25-40); Mean Corpuscular HGB Conc 33.1 % (30-36); Mean Corpuscular Hemoglobin 31.1 PG (26-34); Mean Corpuscular Volume 93.8 fL (80-100); Monocytes Absolute Auto 700 /uL (0-900); Monocytes Percent Auto 10.8 % (3-14); Neutrophils Absolute Auto 2800 /uL (1500-7000); Neutrophils Percent Auto 43.5 % (50-75); Platelet Count 201 X10^3/uL (150-400); Red Blood Cell Count 3.81 X10^6/uL (4.0-5.2); Red Cell Distribution Width 14.5 % (11.6-14.8); White Blood Cell Count 6.4 X10^3/uL (4.5-11.0)
[2024-11-27 18:31] LABS: Hemoglobin A1C% w Est Avg Glu 7.4 % (4.0-6.0)
[2024-11-27 18:41] LABS: Iron 109 ug/dL (37-170)
[2024-11-27 18:43] LABS: Alanine Aminotransferase 37 IU/L (<35); Albumin 4.6 g/dL (3.5-5.0); Albumin Globulin Ratio 1.6 (1.0-2.8); Alkaline Phosphatase 64 U/L (38-126); Aspartate Aminotransferase 40 IU/L (14-36); BUN Creatinine Ratio 23.2 (6-22); Bilirubin Total 0.4 mg/dL (0.2-1.3); Blood Urea Nitrogen 22 mg/dL (7-17); Calcium 9.7 mg/dL (8.4-10.2); Carbon Dioxide 31 mmol/L (22-32); Chloride 99 mmol/L (98-107); Cholesterol 184 mg/dL (140-199); Estimated Glomerular Filt Rate > 60 mL/min (>60); Globulin 2.8 g/dL (1.7-4.1); Glucose 121 mg/dL (80-110); HDL Cholesterol 49 mg/dL (40-60); HEMOLYSIS < 15 (0-50); LDL Cholesterol Calculated 78 mg/dL (<100); Magnesium 1.2 mg/dL (1.6-2.3); Potassium 3.9 mmol/L (3.4-5.1); Sodium 137 mmol/L (137-145); Total Protein 7.4 g/dL (6.3-8.2); Triglycerides 287 mg/dL (35-150)
[2024-11-27 18:52] LABS: Total Iron Binding Capacity 331 ug/dL (265-497); Transferrin 313 mg/dL (206-381)
[2024-11-27 19:17] LABS: Ferritin 32 ng/mL (11-264)
[2024-11-27 19:32] LABS: Vitamin B12 268 pg/mL (239-931)
== END ==
PROVIDERS: PCP Family Medicine; Referring Provider Family Medicine; Visit Provider Family Medicine
DX: Z00.00 Encounter for general adult medical examination without abnormal findings (principal); E11.9 Type 2 diabetes mellitus without complications; E78.2 Mixed hyperlipidemia; N90.4 Leukoplakia of vulva; B37.31 Acute candidiasis of vulva and vagina; J45.909 Unspecified asthma, uncomplicated; E83.42 Hypomagnesemia; Z13.0 Encounter for screening for diseases of the blood and blood-forming organs and certain disorders involving the immune mechanism; K63.5 Polyp of colon; I25.118 Atherosclerotic heart disease of native coronary artery with other forms of angina pectoris; E11.65 Type 2 diabetes mellitus with hyperglycemia; K21.9 Gastro-esophageal reflux disease without esophagitis; R06.09 Other forms of dyspnea; E78.00 Pure hypercholesterolemia, unspecified; Z23 Encounter for immunization; D64.9 Anemia, unspecified; D12.6 Benign neoplasm of colon, unspecified
CPT/HCPCS: 36415; 80053; 80061; 82607; 82728; 83036; 83540; 83550; 83735; 84466; 85025

== ENCOUNTER → 2024-12-13 14:04 | Outpatient (CLI) | payer MEDICARE, OTHER, SELFPAY ==
--- NOTE | 2024-12-13 14:19 | DIAB.FU ---
Follow-up Diabetes Education Assessment Name: Griselda Ramirez Date: 12/13/24 Time: 208-3p Dx: Type II Diabetes Griselda presents for Dm visit. Diagnosed about 10 years ago per report. Some diarrhea/constipation a few times per week each. Was constipated and tried to increase fiber with popcorn. Next day diarrhea. Went to GI and rec taking one immodium for constipation vs two. Salad every other day, eating nuts, more popcorn. Working on eating frequency but still in progress. often skipping meals/snacks Drinking 60+oz per day water Reports recent increase in hgA1c after PCP visit last month. Anthropometrics: Ht: 61 Wt: 197# reported Physical Activity: 20 min walks to [facility], [facility]-- less with weather Self-Monitoring Blood Glucose: Brought meter today with new strips. Did a return demo with BG of 192mg/dl after on the go meal of potato salad with egg Diabetes Medications: 500mg Metformin BID Pertinent Labs: HgA1c: 6.7% 08/2024 >7% 11/2024 T chol: 181 HDL46 LDL 88 Past Medical History: (Last Updated 06/20/23 @ 20:33 by Marva Naylor) Cataracts, bilateral Chronic back pain Colon polyps Foot pain Gait instability Grade 3 cystocele (06/03/15) Repaired Hemorrhoid (~2014) Lumbar radiculopathy Post concussive syndrome Nutrition Rx: Carbohydrates: Meal:30-45g Snack:15-30g Nutrition Diagnosis: - Nutrition and food related knowledge deficit r/t needing refresher on nutrition aeb pt report- in progress - Predicted excessive CHO intake r/t stage of change aeb pt report and diet recall- in progress - Self monitoring deficit r/t needing setup for meter aeb pt report - in progress - Predicted inadequate fiber intake r/t nutrition knowledge deficit aeb BM inconsistencies and reported foods she consumes- new Intervention: This participant was very receptive. Provided appropriate educational handouts. Discussed the following topics: Reviewed carb portions, meal timing Reviewed SMBG and return demo BG goals Fiber MNT and recipes Hydration Created SMART goals for patient self-care and success. Goals: Ask PCP for meter supplies- met Try to lotion feet- met Try to eat q 3-4 hours- improved/in progress Increase fiber slowly- new Check BG- new Get new lancets- new Follow-up: KITTY WHYTE follow-up in 3-4 weeks Jenna Meehan RDN, PATO Certified Diabetes Care and Fleshing Machine Operator P: [phone] Thank you for this referral
== END ==
LOC: DIET 14:04
PROVIDERS: PCP Family Medicine; Referring Provider Family Medicine
DX: E11.9 Type 2 diabetes mellitus without complications (principal); R19.7 Diarrhea, unspecified; K59.00 Constipation, unspecified; Z79.84 Long term (current) use of oral hypoglycemic drugs; Z71.3 Dietary counseling and surveillance
CPT/HCPCS: 97803

== ENCOUNTER → 2025-10-08 15:06 | Outpatient (CLI) | payer MEDICARE, OTHER, SELFPAY ==
[2025-10-08 18:48] LABS: Appearance Urine UA CLEAR; Bilirubin Urine UA NEGATIVE (NEGATIVE); Color Urine UA YELLOW; Glucose Urine UA NEGATIVE (Negative); Ketones Urine UA TRACE (NEGATIVE); Leukocyte Esterase Urine UA NEGATIVE (NEGATIVE); Nitrite Urine UA NEGATIVE (Negative); Occult Blood Urine UA 3+ (Negative); Protein Urine UA NEGATIVE (Negative); Specific Gravity Urine UA 1.020 (1.000-1.035); Urobilinogen Urine UA 0.2 E.U./dL (0.2)
[2025-10-08 19:07] LABS: pH Urine UA 6.0 (4.5-8.0)
[2025-10-08 19:10] LABS: Culture Indicated Urine Cult Not Indicated
== END ==
PROVIDERS: PCP Family Medicine; Visit Provider Obstetrics & Gynecology
DX: R39.15 Urgency of urination (principal); R10.20 Pelvic and perineal pain unspecified side; R32 Unspecified urinary incontinence
CPT/HCPCS: 81001; 87086

== ENCOUNTER → 2025-10-22 14:06 | Outpatient (CLI) | payer MEDICARE, OTHER, SELFPAY ==
[2025-10-22 14:50] LABS: Appearance Urine UA CLEAR; Bilirubin Urine UA NEGATIVE (NEGATIVE); Color Urine UA YELLOW; Glucose Urine UA NEGATIVE (Negative); Ketones Urine UA NEGATIVE (NEGATIVE); Leukocyte Esterase Urine UA NEGATIVE (NEGATIVE); Nitrite Urine UA NEGATIVE (Negative); Occult Blood Urine UA NEGATIVE (Negative); Protein Urine UA NEGATIVE (Negative); Specific Gravity Urine UA 1.010 (1.000-1.035); Urobilinogen Urine UA 0.2 E.U./dL (0.2); pH Urine UA 6.0 (4.5-8.0)
[2025-10-22 14:51] LABS: Culture Indicated Urine Cult Not Indicated
== END ==
PROVIDERS: PCP Family Medicine; Referring Provider Obstetrics & Gynecology; Visit Provider Obstetrics & Gynecology
DX: R31.9 Hematuria, unspecified (principal)
CPT/HCPCS: 81001